=== PATIENT | male | born 1950 | race African-American/Black ===

== ENCOUNTER 2017-03-26 06:56 | Outpatient (CLI) | payer MEDICARE ==
[2017-03-26 07:19] LABS: Hematocrit 45.7 % (35.5-45.6); Hemoglobin 15.3 gm/dl (11.8-15.2); Mean Corpuscular HGB Conc 34 % (32-34); Mean Corpuscular Hemoglobin 33 pg (28-32); Mean Corpuscular Volume 100 fl (84-94); Platelet Count 143 K/mm3 (140-440); Red Blood Count 4.57 M/mm3 (3.65-5.03)
[2017-03-26 07:35] LABS: Alanine Aminotransferase 12 units/L (7-56); Albumin 4.4 g/dL (3.9-5); BUN/Creatinine Ratio 20; Blood Urea Nitrogen 18 mg/dL (9-20); Calcium 9.3 mg/dL (8.4-10.2); Hemolysis Index 9
[2017-03-26] MEDS ORDERED: NACL ONE (07:51)
--- NOTE | 2017-03-26 08:26 | Cat Scan Report ---
CT CHEST WITH CONTRAST: HISTORY: Pulmonary fibrosis. COMPARISON: none. TECHNIQUE: Helical CT in 1.25mm intervals following IV contrast. Sagittal and coronal reformatted images. FINDINGS: Thyroid gland: Normal. Tracheobronchial tree: Normal. Esophagus: Normal. Heart: Mild cardiomegaly. Pericardium: Normal. Mediastinum: Normal. Lung Ramires: The lungs are adequately aerated. There are multiple calcified granulomas in both upper lobes. The largest granuloma measures 1.4 cm in the posterior left upper lobe. There is mild surrounding scarring but no evidence for soft tissue nodule, infiltrate or interstitial disease. No septal thickening or honeycombing is identified to suggest pulmonary fibrosis. Pleural Spaces: Normal. Musculoskeletal: Normal. IMPRESSION: Findings consistent with chronic granulomatous disease. No findings to suggest pulmonary fibrosis. Mild cardiomegaly.
== END 2017-03-26 06:57 | disposition home or self-care (01) ==
LOC: CT 06:56
PROVIDERS: ATTEND Internal Medicine
DX: J84.10 Pulmonary fibrosis, unspecified (principal); I51.7 Cardiomegaly
CPT/HCPCS: 36415; 71260; 80053; 85027; Q9967